=== PATIENT | female | born 1985 ===

== ENCOUNTER 2025-04-26 13:25 | Outpatient (AMB) | payer OTHER, SELFPAY | END 2025-04-26 13:29 | disposition home or self-care (01) | LOC: HO.HMGAL 13:25 | PROVIDERS: PCP Family Medicine; Visit Provider Registered Nurse Emergency | DX: J30.89 Other allergic rhinitis (principal) | CPT/HCPCS: 95117; 95165 ==

== ENCOUNTER 2025-05-08 13:20 | Outpatient (AMB) | payer OTHER, SELFPAY | END 2025-05-08 13:22 | disposition home or self-care (01) | LOC: HO.HMGAL 13:20 | PROVIDERS: Visit Provider Registered Nurse Emergency | DX: J30.89 Other allergic rhinitis (principal) | CPT/HCPCS: 95117; 95165 ==

== ENCOUNTER 2025-05-31 13:39 | Outpatient (AMB) | payer OTHER, SELFPAY | END 2025-05-31 13:40 | disposition home or self-care (01) | LOC: HO.HMGAL 13:39 | PROVIDERS: Visit Provider Registered Nurse Emergency | DX: J30.89 Other allergic rhinitis (principal) | CPT/HCPCS: 95117; 95165 ==

== ENCOUNTER 2025-06-26 13:35 | Outpatient (AMB) | payer OTHER, SELFPAY | END 2025-06-26 13:35 | disposition home or self-care (01) | LOC: HO.HMGAL 13:35 | PROVIDERS: Visit Provider Registered Nurse Emergency | DX: J30.89 Other allergic rhinitis (principal) | CPT/HCPCS: 95117; 95165 ==

== ENCOUNTER 2025-07-26 13:19 | Outpatient (AMB) | payer OTHER, SELFPAY ==
--- OUTSIDE RECORDS SUMMARY | 2025-07-26 15:48 | XMS_ITS | Data Portability ---
Author Organization [place] - [employer] [facility], [facility] [employer] Address [address] [place] [address] Care Team Providers Care Recreation Teacher Name Role Phone FordLYNN WILLIE Primary Care Provider [phone] Assessment Encounter Date Assessment Date Assessment LastModified by Organization Details LastModified Time 07/18/2024 07/18/2024 Pt is scheduled with Dr. Zimmer for 6 week visit. Appt confirmed with pt today. Not available 07/18/2024 11:47:42 Plan of Treatment Reminders Order Date Submit Date Provider Last Modified By Organization Details Last Modified Time Details Appointments Ext annual 2024 03:00P Demler Smith MD Not available Not available Not available Lab test, urine 2023 024 [email or web address] In-Office Order, Internal Use Only DO Not Attach Compendium DO Not Attach Compendium, Do Not Delete/merge, [id number] 08/11/2024 12:10:37 streptoco ccus group B DNA 2023 024 [facility], [address] [place] [address], [id number], 06/08/2024 07:49:31 Referral None recorded. Procedures None recorded. Surgeries None recorded. Imaging None recorded. Medication Orders Nexplanon 68 mg subdermal implant 2023 024 etatro Not available 08/11/2024 15:43:12 Patient TargetsNo targets recorded. Patient InstructionsNo instructions recorded. Reason for Referral None Reported. Results Created Date Observation Date Name Description Value Unit Range Abnormal Flag Note LastModifiedBy Organization Detail LastModifiedTime 06/06/20 24 06/07/2024 GROUP B STREP (PCR) -LORIE VIOLETTE group B strep (PCR)-genita l NEGATI VE Faiza l Range : Not Detec betzy The Cephe id Xpert GBS LB Assay is an in vitro molec ular diagn ostic test desig bhavya to detec t Group B Stept ococc us (GBS) from MATUTE broth enric hed vagin al/re ctal swab speci mens. The assay uses a real- time polym erase chain react ion for detec tion of ampli fied DNA. The assay signi fican tly incre ases the sensi tivit y and speci ficit y to great er than 90% over tradi catalina l subcu lture . Testi ng is indic ated as an aid in deter minin g GBS colon izati on statu s of antep artum women at 35-37 weeks gesta tion. The Xpert GBS LB assay does not provi de antim icrob ial susce ptibi lity resul ts. Cultu re isola jovana are neede d to perfo rm susce ptibi lity testi ng as recom moy d for Penic illin -darlene rgic women . A separ ate test must be order ed for cultu re with susce ptibi lity on penic illin aller gic women at high risk of anaph ylaxi s. Note: Patie nts who have used syste torie or topic al (vagi nal) antib iotic treat ment in the week prior as well as patie nts diagn osed with place nta previ a shoul d not be teste d with Xpert GBS LB assay . Not Available [address], [address], 06/08/2024 07:49:31 06/30/20 24 06/30/2024 COMPL ETE BLOOD COUNT W/ DIFF white blood count 11.4 K/mm3 4.0-11 .0 high Not Available [address], [address], 06/30/2024 08:48:08 06/30/20 24 06/30/2024 COMPL ETE BLOOD COUNT W/ DIFF red blood count 4.34 M/uL 4.00-5 .50 normal Not Available [address], [address], 06/30/2024 08:48:08 06/30/20 24 06/30/2024 COMPL ETE BLOOD COUNT W/ DIFF hemoglobin 12.7 gm/dL 12.0-1 6.0 normal Not Available [address], [address], 06/30/2024 08:48:08 06/30/20 24 06/30/2024 COMPL ETE BLOOD COUNT W/ DIFF hematocrit 38.0 % 37.0-4 7.0 normal Not Available [address], [address], 06/30/2024 08:48:08 06/30/20 24 06/30/2024 COMPL ETE BLOOD COUNT W/ DIFF mean corpuscular volume 87.6 fL 80.0-1 00.0 normal Not Available [address], [address], 06/30/2024 08:48:08 06/30/20 24 06/30/2024 COMPL ETE BLOOD COUNT W/ DIFF MCHC 33.4 % 32-37 normal Not Available [address], [address], 06/30/2024 08:48:08 06/30/20 24 06/30/2024 COMPL ETE BLOOD COUNT W/ DIFF red cell distribution width 13.4 % 11.5-1 6.0 normal Not Available [address], [address], 06/30/2024 08:48:08 06/30/20 24 06/30/2024 COMPL ETE BLOOD COUNT W/ DIFF platelet count 196 K/uL 140-40 0 normal Not Available [address], [address], 06/30/2024 08:48:08 06/30/20 24 06/30/2024 COMPL ETE BLOOD COUNT W/ DIFF mean platelet volume 10.5 fL 8.6-12 .5 normal Not Available [address], [address], 06/30/2024 08:48:08 06/30/20 24 06/30/2024 COMPL ETE BLOOD COUNT W/ DIFF %neutrophils auto 87.2 % Not Available [address], [address], 06/30/2024 08:48:08 06/30/20 24 06/30/2024 COMPL ETE BLOOD COUNT W/ DIFF %lymphocytes auto 5.8 % Not Available [address], [address], 06/30/2024 08:48:08 06/30/20 24 06/30/2024 COMPL ETE BLOOD COUNT W/ DIFF %monocytes auto 6.2 % Not Available [address], [address], 06/30/2024 08:48:08 06/30/20 24 06/30/2024 COMPL ETE BLOOD COUNT W/ DIFF %eosinophils auto 0.7 % Not Available [address], [address], 06/30/2024 08:48:08 06/30/20 24 06/30/2024 COMPL ETE BLOOD COUNT W/ DIFF %basophils auto 0.1 % Not Available [address], [address], 06/30/2024 08:48:08 06/30/20 24 06/30/2024 COMPL ETE BLOOD COUNT W/ DIFF #neutrophils auto 9.95 K/uL 1.50-7 .50 high Not Available [address], [address], 06/30/2024 08:48:08 06/30/20 24 06/30/2024 COMPL ETE BLOOD COUNT W/ DIFF #lymphocytes auto 0.66 K/uL 1.00-4 .50 low Not Available [address], [address], 06/30/2024 08:48:08 06/30/20 24 06/30/2024 COMPL ETE BLOOD COUNT W/ DIFF #monocytes auto 0.71 K/uL 0.00-0 .80 normal Not Available [address], [address], 06/30/2024 08:48:08 06/30/2006/30/2024 COMPL ETE BLOOD COUNT W/ DIFF #eosinophils auto 0.08 K/uL 0.00-0 .40 normal Not Available [address], [address], 06/30/2024 08:48:08 06/30/20 24 06/30/2024 COMPL ETE BLOOD COUNT W/ DIFF #basophils auto 0.01 K/uL 0.00-0 .20 normal Not Available [address], [address], 06/30/2024 08:48:08 06/30/2006/30/2024 TYPE AND SCREE N blood type A Positi ve Not Available [address], [address], 06/30/2024 09:37:07 06/30/2006/30/2024 TYPE AND SCREE N antibody screen NEGATI VE Not Available [address], [address], 06/30/2024 09:37:07 07/01/2007/01/2024 COMPL ETE BLOOD COUNT W/ DIFF white blood count 9.7 K/mm3 4.0-11 .0 normal Not Available [address], [address], 07/01/2024 06:17:02 07/01/2007/01/2024 COMPL ETE BLOOD COUNT W/ DIFF red blood count 4.24 M/uL 4.00-5 .50 normal Not Available [address], [address], 07/01/2024 06:17:02 07/01/20 24 07/01/2024 COMPL ETE BLOOD COUNT W/ DIFF hemoglobin 12.3 gm/dL 12.0-1 6.0 normal Not Available [address], [address], 07/01/2024 06:17:02 07/01/20 24 07/01/2024 COMPL ETE BLOOD COUNT W/ DIFF hematocrit 37.3 % 37.0-4 7.0 normal Not Available [address], [address], 07/01/2024 06:17:02 07/01/20 24 07/01/2024 COMPL ETE BLOOD COUNT W/ DIFF mean corpuscular volume 88.0 fL 80.0-1 00.0 normal Not Available [address], [address], 07/01/2024 06:17:02 07/01/2007/01/2024 COMPL ETE BLOOD COUNT W/ DIFF MCHC 33.0 % 32-37 normal Not Available [address], [address], 07/01/2024 06:17:02 07/01/20 24 07/01/2024 COMPL ETE BLOOD COUNT W/ DIFF red cell distribution width 13.4 % 11.5-1 6.0 normal Not Available [address], [address], 07/01/2024 06:17:02 07/01/2007/01/2024 COMPL ETE BLOOD COUNT W/ DIFF platelet count 189 K/uL 140-40 0 normal Not Available [address], [address], 07/01/2024 06:17:02 07/01/2007/01/2024 COMPL ETE BLOOD COUNT W/ DIFF mean platelet volume 10.6 fL 8.6-12 .5 normal Not Available [address], [address], 07/01/2024 06:17:02 07/01/20 24 07/01/2024 COMPL ETE BLOOD COUNT W/ DIFF %neutrophils auto 77.6 % Not Available [address], [address], 07/01/2024 06:17:02 07/01/20 24 07/01/2024 COMPL ETE BLOOD COUNT W/ DIFF %lymphocytes auto 10.8 % Not Available [address], [address], 07/01/2024 06:17:02 07/01/2007/01/2024 COMPL ETE BLOOD COUNT W/ DIFF %monocytes auto 9.4 % Not Available [address], [address], 07/01/2024 06:17:02 07/01/20 24 07/01/2024 COMPL ETE BLOOD COUNT W/ DIFF %eosinophils auto 1.9 % Not Available [address], [address], 07/01/2024 06:17:02 07/01/20 24 07/01/2024 COMPL ETE BLOOD COUNT W/ DIFF %basophils auto 0.3 % Not Available [address], [address], 07/01/2024 06:17:02 07/01/20 24 07/01/2024 COMPL ETE BLOOD COUNT W/ DIFF #neutrophils auto 7.54 K/uL 1.50-7 .50 high Not Available [address], [address], 07/01/2024 06:17:02 07/01/20 24 07/01/2024 COMPL ETE BLOOD COUNT W/ DIFF #lymphocytes auto 1.05 K/uL 1.00-4 .50 normal Not Available [address], [address], 07/01/2024 06:17:02 07/01/20 24 07/01/2024 COMPL ETE BLOOD COUNT W/ DIFF #monocytes auto 0.91 K/uL 0.00-0 .80 high Not Available [address], [address], 07/01/2024 06:17:02 07/01/20 24 07/01/2024 COMPL ETE BLOOD COUNT W/ DIFF #eosinophils auto 0.18 K/uL 0.00-0 .40 normal Not Available [address], [address], 07/01/2024 06:17:02 07/01/20 24 07/01/2024 COMPL ETE BLOOD COUNT W/ DIFF #basophils auto 0.03 K/uL 0.00-0 .20 normal Not Available [address], [address], 07/01/2024 06:17:02 08/11/20 24 08/11/2024 pregn milind test, urine HCG negati ve Not Available In-Office Order Internal Use Only DO Not Attach Compendium DO Not Attach Compendium, Do Not Delete/merge, [id number] 08/11/2024 11:48:43 05/12/20 24 05/11/2024 US, obste tric, follo w-up No observ ation record ed. [facility] [address] [place], [address], 05/13/2024 09:59:22 Result Notes None recorded. Problems Name Problem SNOMED Code Status Onset Date Resolution Date Notes Provider Name and Address Organization Details Recorded Time Pregnanc y 00412013 Completed Mannie Zimmer MD [address] [place] [address], [phone], [place] [employer] [facility] 12:10:56 Routine antenata l care Completed Delmer Fenton MD [address] [place] [address], [phone], [facility] [employer] 4 16:11:49 Advanced maternal age 957515245 Completed AFP, L2, Qnatal Delmer Fenton MD [address] [place] [address], [phone], [facility] [employer] 4 16:11:49 Low-lyin g placenta 201270506 Completed rpt US pending, done and low lying placenta resolved nl growth 62% Mannie Zimmer MD [address] [place] [address], [phone], [facility] [employer] 4 08:15:55 Pregnanc y 21634429 Completed 202308/13/2024 Tiffany Kirk [facility], [facility] [employer] [facility] 4 16:14:17 COVID-19 [id number] Completed 2023 at 24.1 Shelby Strickland LPN [address] [place] [address], [phone], [facility] [employer] 4 15:28:20 Breech presenta tion [id number] Completed 202306/06/2024 on 05/11/24 ([place]) VTX on 06/06 Bella Dominguez MD [address] [place] [address], [phone], [facility] [employer] 4 13:20:06 Subcutan eous contrace ptive implant present 710783252 Active 2023 Inserted 08/11/24 Mannie Zimmer MD [address] [place] [address], [phone], [facility] [employer] 4 12:11:13 Problem Notes None recorded. Procedures Surgical History Date Name Laterality Status Provider Name and Address Organization Details Recorded Time 08/11/20 Nexplanon Insertion completed Mannie Zimmer MD [address] [place] [address], [phone], [facility] [employer] 08/11/2024 12:09:32 10/14/20 24 Limited Obstetric Ultrasound completed Bella Dominguez MD [address] [place] [address], [phone], [facility] [employer] 06/06/2024 13:05:15 08/31/19 24 Date of Last Pap Smear completed Zayra Stoll RN [address] [place] [address], [phone], [facility] [employer] 12/02/2023 13:36:33 12/21/19 22 Nexplanon Removal completed Delmer Fenton MD [address] [place] [address], [phone], [facility] [employer] 12/20/2021 15:37:00 06/25/20 18 Nexplanon Removal completed Delmer Fenton MD [address] [place] [address], [phone], [facility] [employer] 06/25/2018 16:17:58 10/15/19 16 Nexplanon Insertion completed Bella Dominguez MD [address] [place] [address], [phone], [facility] [employer] 10/15/2015 14:41:14 extraction of wisdom tooth completed Zayra Stoll RN [address] [place] [address], [phone], [facility] [employer] 12/02/2023 13:42:20 Imaging Results None recorded. Procedure Notes None recorded. Medical Equipment None Reported. Allergies Allergen ID Allergen Name Allergen Category Reaction Reaction Severity Criticality Documentation Date Start Date Code Code System Note Provider Name and Address Organization Details Recorded Time 18580 bacitraci n medicatio n Not available Not available Not available 09/10/2012 1291 RxNorm Nancy Sorto CMA null, [facility] [employer] [facility] 3 10:47:06 [address]659 bacitraci n / neomycin / polymyxin B medicatio n Not available Not available Not available 09/10/2012 08203 9 RxNorm Nancy Sorto CMA null, [facility] [employer] [facility] 3 10:47:06 Medications Name Sig Start Date Stop Date Status Note LastModified by Organization Details LastModified Time Mirena 21 mcg/24 hr (up to 8 years) 52 mg intrauter ine device active Not Available Not Available Not Available fluconazo le 150 mg tablet TAKE 1 TABLET BY MOUTH EVERY DAY FOR 1 DAY 06/22 completed Not Available Not Available Not Available dextroamp hetamine- amphetami ne 10 mg tablet TAKE 1 TABLET BY MOUTH THREE TIMES DAILY 08/31 completed Not Available Not Available Not Available lamotrigi ne 25 mg tablet 08/31 completed Not Available Not Available Not Available Vitamin tablet Take 1 tablet every day by oral route for 30 days. 2013 active Not Available Not Available Not Avai lable dextroamp hetamine- amphetami ne 30 mg tablet TAKE 1 TABLET BY MOUTH TWICE DAILY NEEDED FOR ADHD active Not Available Not Available No t Available famotidin e 20 mg tablet TAKE 1 TABLET BY MOUTH TWICE DAILY 07/18 completed Not Available Not Available Not Available trazodone 100 mg tablet TAKE 3 TABLETS BY MOUTH AT BEDTIME active is not taking since baby was born Not Available Not Available Not Available clotrimaz ole-betam ethasone 1 %-0.05 % topical cream APPLY TOPICALL Y TO THE AFFECTED AND SURROUND ING AREAS TWICE DAILY IN THE MORNING AND IN THE EVENING FOR 2 WEEKS 08/31 completed Not Available Not Available Not Available dextroamp hetamine- amphetami ne 20 mg tablet TAKE 1 AND 1/2 TABLETS BY MOUTH TWICE DAILY active not taking Not Available Not Available Not Available polyethyl maria g glycol 3350 17 gram/dose oral powder TAKE 17 GM BY MOUTH ONCE DAILY 03/06 completed Not Available Not Available Not Available lamotrigi ne 100 mg tablet TAKE 1 TABLET BY MOUTH EVERY DAY 08/31 completed Not Available Not Available Not Available Vitamin 27 mg iron-0.8 mg tablet TAKE 1 TABLET EVERY DAY BY ORAL ROUTE 08/31 completed Not Available Not Available Not Available escitalop amelia 10 mg tablet TAKE 1 TABLET BY MOUTH EVERY MORNING 08/31 completed Not Available Not Available Not Available escitalop amelia 20 mg tablet TAKE 1 TABLET BY MOUTH EVERY MORNING active Not Available Not Available No t Available bupropion HCl XL 300 mg 24 hr tablet, extended release TAKE 1 TABLET BY MOUTH EVERY DAY. 08/31 completed Not Available Not Available Not Available bupropion HCl XL 150 mg 24 hr tablet, extended release TAKE 1 TABLET BY MOUTH EVERY DAY 08/31 completed Not Available Not Available Not Available lactulose 10 gram/15 mL oral solution TAKE 30 ML BY MOUTH DAILY NEEDED FOR CONSTIPA TION 03/06 completed Not Available Not Available Not Available Nexplanon 68 mg subdermal implant Inject 1 implant by subcutan eous route. 2023 active FX Barcode Number: [id number] Not Available Not Available Not Available Nexplanon 08/31 completed Not Available Not Available Not Available 28 mg iron-800 mcg tablet TAKE 1 TABLET BY MOUTH ONCE DAILY active Not Available Not Available No t Available Banophen 50 mg capsule TAKE 1 CAPSULE BY MOUTH DAILY 08/31 completed Not Available Not Available Not Available Linzess 145 mcg capsule TAKE 1 CAPSULE BY MOUTH DAILY active Not Available Not Available No t Available Vienva 0.1 mg-20 mcg tablet TAKE 1 TABLET BY MOUTH DAILY DIRECTED ON PACKAGE 08/31 completed Not Available Not Available Not Available Linzess 72 mcg capsule TAKE 1 CAPSULE BY MOUTH DAILY 08/31 completed Not Available Not Available Not Available COVID-19 vacc,mRNA (Moderna) -PF 08/31 completed Not Available Not Available Not Available Sutab 1.479-0.1 88-0.225 gram tablet COMPLETE ON DAY BEFORE THE PROCEDUR E PER INSTRUCT IONS GIVEN BY 12/20 completed Not Available Not Available Not Available Vitals Date Recorded Body height Body mass index (BMI) Body weight Systolic And Diastolic Provider Name and Address Organization Details Last Updated DateTime 06/06/2024 175.26 cm 33.7 kg/m2 609036.78 g 108/72 mm[Hg] Zuri Soto CMA [place] [employer] 06/06/2024 12:51:32 Date Recorded Body height Body mass index (BMI) Body weight Systolic And Diastolic Provider Name and Address Organization Details Last Updated DateTime 06/13/2024 175.26 cm 33.7 kg/m2 043483.06 g 112/78 mm[Hg] Zayra Stoll RN [address] [place], [phone], [place] [employer] 06/13/2024 08:03:45 Date Recorded Body height Body mass index (BMI) Body weight Systolic And Diastolic Provider Name and Address Organization Details Last Updated DateTime 06/22/2024 175.26 cm 34.1 kg/m2 559791.84 g 120/72 mm[Hg] Zayra Stoll RN [address] [place], [phone], [facility] [employer] [facility] 06/22/2024 14:48:04 Date Recorded Body height Body mass index (BMI) Body weight Systolic And Diastolic Provider Name and Address Organization Details Last Updated DateTime 07/18/2024 175.26 cm 32.1 kg/m2 64060.98 g 106/64 mm[Hg] Shelby Strickland LPN [address] [place], [phone], [facility] [employer] [facility] 07/18/2024 11:06:54 Date Recorded Body height Body mass index (BMI) Body weight Systolic And Diastolic Provider Name and Address Organization Details Last Updated DateTime 08/11/2024 175.26 cm 33.6 kg/m2 048596.19 g 114/74 mm[Hg] Ashlee Cummins [facility] [employer] 08/11/2024 11:29:41 Social History Question Answer Notes LastModified by Organizat ion Details LastModified Time Tobacco Smoking Status Former Smoker quit 2012 Vivien Friedman CMA [facility] [employer] [facility] 08/31/2023 09:00:54 If You Are , What Was Your Level Of Alcohol Consumption Prior To ? None [email or web address] Information not available 12/02/2023 Is Blood Transfusion Acceptable In An Emergency? Yes Information not available 12/02/2023 What Is Your Level Of Caffeine Consumption? Occasional Information not available 03/06/2021 What Type Of Diet Are You Following? REGULAR Information not available 12/02/2023 Which Illicit Or Recreational Drugs Have You Used? None Information not available 08/31/2023 What Is Your Home Situation? Other Information not available 12/02/2023 Have You Ever Experienced Any Trauma Such As A Sexual Assault, Domestic Violence, Combat Experience, A Sudden Of A Loved One, Or Anything That Made You Excessively Afraid? No Information not available 03/06/2021 Language Tajik Information no t available 03/06/2021 Dietary Regular Information no t available 06/25/2018 Marital Status Informatio n not available 06/25/2018 What Was The Date Of Your Most Recent Tobacco Screening? 07/18/2024 Information not available 07/18/2024 How Many Children Do You Have? 1 [id number] Information not available 06/08/2020 Do You Use Protection During Sex? Always [id number] Information not available 06/08/2020 What Is Your Relationship Status? Single Information not available 12/02/2023 Seat Belts Used Routinely Yes Information not available 03/06/2021 Are You Sexually Active? Yes [id number] Information not available 06/08/2020 Are You Passively Exposed To Smoke? No Information not available 12/02/2023 How Much Tobacco Do You Smoke? No Information not available 08/31/2023 Are You Currently In School? No Information not available 12/02/2023 What Contraceptive Method Was Reported At Start Of This Visit? None Information not available 12/02/2023 Do You Want To Talk About Contraception Or Prevention During Your Visit Today? No - I Do Not Want To Talk About Contraception Today Because I Am Here For Something Else Information not available 12/02/2023 Sex: Female Functional Status Question Answer Note LastModified by Organizat ion Details LastModified Time Do you use any illicit or recreational drugs? No Information not available 08/31/2023 Do you or have you ever used any other forms of tobacco or nicotine? No Information not available 08/31/2023 What is your level of alcohol consumption? Occasional [id number] Information not available 06/08/2020 Are you currently employed? 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 Occasional [id number] Information not available 06/08/2020 Mental Status None recorded. Family History Relationship Description Onset Age of this Age Resolved Age Notes LastModified by Organization Details LastModified Time Father No current problems or disability [email or web address] Not available 07/22 13:04:33 Mother No current problems or disability [email or web address] Not available 07/22 13:04:33 Notes:No known family hx of [employer] related cancers. Medical History Condition Response Asthma, COPD, Breathing or Lung Disorder N Anxiety/Depression N Gout N Cardiac History, Heart Murmur, GA N Eye or Vision Problems Y Gynecologic problems N Hernia N Thyroid Problems N GI Problems N Developmental or Behavioral Disorders N Blood Pressure High or Low N Breast Problem N Skin Problems N Food or Environmental Allergies Y Diabetes N Bladder,Kidney Problems or Recurrent UTI 's N Muscle, Joint, or Bone Problems N Bleeding Disorder N Arthritis N Infertility N Cancer (of any kind) N Defects or Inherited Diseases N Prostate issues, ED or Sexual Problem N Insomnia N Cholesterol High or Low N Chronic Pain N Stroke N Headache N Dizziness or Fainting N Seizures or Convulsions N Ear Nose & Throat (ENT) Problems N Neuropathy N Osteoporosis N Liver Disease or Hepatitis N Gynecological History Statement/Question Response Hx abnormal paps No N genital prolapse N Date of LMP 09/30/2023 hx of breast problem No Y Post Menopausal Bleeding N endometriosis N Duration of Flow (days) 5 Current Control Method None Age at Menarche 14 vaginal hormone use N Gardasil vaccination No Using condoms N incontinence urine/ bowels N Frequency of Cycle (Q days) 29 Sexually Active? Y Hx any STI No chronic vaginal infections N Nexplanon Date of Last Pap Smear 08/31/2023 hx of urinary problem No hx of bibliographic services specialist surgery No Hormone Replacement Therapy N Obstetrics History GPAL:G 2 P 2 0 0 2 Type Value Full Term 2 Living 2 Total 2 Immunizations Vaccine Type Date Status Note Provider Nam e and Address Organization Details Recorded Time Tdap 04/12/2024 completed Vivien Friedman CMA [facility], [facility] [employer] 04/12/2024 17:08:28 Influenza, split virus, trivalent, PF 05/13/2024 completed NIHARIKA ARANGO MD [address] [place] [address], [phone], [facility] - [employer] 05/13/2024 15:00:55 Past Encounters Encounter ID Performer Location Encounter Start Date Encounter Closed Date Diagnosis/Indication Diagnosis SNOMED-CT Code Diagnosis ICD10 Code Diagnosis IMO Codes Diagnosis Note [id number] Delmer Fenton MD [facility] [employer] [address] [place] [address] 09/15/2013 16:05:30 09/15/2013 16:40:21 Specialized medical examination [id number] Screening for malignant neoplasm of cervix [id number] Removal of intrauterine device 00403292 Contracept ion care management [id number] Ang Reid MD [facility] [employer] [address] [place] [address] 10/11/2015 15:35:12 10/11/2015 16:18:48 Gynecologic examination 95815360 Z01.419 [id number] Bella Dominguez MD [facility] [address] [place] [place] [address] 10/15/2015 14:08:55 10/15/2015 15:28:51 Contraception care management 004946891 Z30.9 Implantati on of subcutaneous contraceptive 463745528 Z30.430 [id number] Delmer Fenton MD [facility] [place] [address] 06/25/2018 15:32:36 06/25/2018 16:19:01 Gynecologic examination 16209409 Z01.419 Screening for malignant neoplasm of cervix 214714864 Z12.4 Removal of subcutaneous contraceptive done 2777546400 32092 Z98.213 [id number] DOMO SALAZAR CNM [facility] [address] [facility] [place] [address] 04/06/2019 13:41:58 04/06/2019 14:19:23 Pruritus of vagina 73777815 L29.3 Pruritus of vulva 084823 00 L29.2 Contracept ion care management 665772087 Z30.9 [id number] Delmer Fenton MD [facility] [address] [place] [place] [address] 07/22/2019 12:54:33 07/22/2019 13:21:15 Gynecologic examination 38913908 Z01.419 Contracept ion care management 180571175 Z30.9 [id number] Delmer Fenton MD [facility] David annia [address] [place] [address] 11/22/2019 08:11:03 11/29/2019 11:56:49 Surveillance of subcutaneous contraceptive implant 536470371 Z30.46 [id number] Delmer Fenton MD [facility] David annia [address] [place] [address] 03/06/2021 15:58:39 03/07/2021 16:39:34 Gynecologic examination 19410242 Z01.419 Female uri nary stress incontinence 86147307 N39.3 [id number] Delmer Fenton MD [facility] David [place] [address] [place] [address] 12/20/2021 14:40:15 12/20/2021 15:36:31 Removal of subcutaneous contraceptive 451386733 Z30.46 Trying to conceive 40192 9001 Z31.9 [id number] Delmer Fenton MD [facility] David annia [address] [place] [address] 08/31/2023 12:56:53 08/31/2023 13:55:19 Gynecologic examination 63971787 Z01.419 Screening for malignant neoplasm of cervix 822118916 Z12.4 Trying to conceive 01219 9001 Z31.9 [id number] Mannie Zimmer MD [facility] David annia [address] [place] [address] 12/02/2023 13:22:37 12/04/2023 08:48:23 Routine care 240693049 Z34.90 Diet education 56686330 Z71.3 [id number] Mannie Zimmer MD [facility] David annia [address] [place] [address] 12/14/2023 15:16:09 12/14/2023 16:38:45 Routine care 302086064 Z34.81 Advanced m aternal age 580730593 O09.521 33273510 Z33.1 [id number] Mannie Zimmer MD [facility] [place] [address] [place] [address] 01/08/2024 14:51:49 01/08/2024 15:43:48 Routine care 746980383 Z34.81 [id number] Bella Dominguez MD [facility] [place] [address] [place] [address] 02/05/2024 14:30:36 02/05/2024 15:20:39 56535135 Z33.1 [id number] NIHARIKA ARANGO MD [facility] [place] [address] [place] [address] 03/04/2024 15:46:58 03/04/2024 16:21:03 Low-lying placenta 629276457 O44.42 Routine an tenatal care 777834741 Z34.81 Advanced m aternal age 463628667 O09.566 [id number] NIHARIKA ARANGO MD [facility] [place] [address] [place] [address] 03/31/2024 14:47:44 03/31/2024 15:42:03 Gastroesophageal reflux disease in 1476112009 1378025 O99.323 [id number] Delmer Fenton MD [facility] [place] [address] [place] [address] 04/12/2024 16:25:56 04/12/2024 17:04:49 Administration of diphtheria, pertussis, and tetanus vaccine 934638488 Z23 TDaP given today; informatio n sheet provided Routine an tenatal care 328153812 Z34.82 Low-lying placenta 28638 2007 O44.42 [id number] Bella Dominguez MD [facility] [place] [address] [place] [address] 04/27/2024 08:11:01 04/27/2024 08:55:48 36417370 Z33.1 [id number] [facility]ARIKA [facility] [address] [place] [address] 05/13/2024 14:32:06 05/16/2024 11:27:26 Influenza vaccine needed 6265227542 106 Z23 Advanced m aternal age 244963145 O09.444 [id number] Delmer Fenton MD [facility] [address] [place] [address] 05/26/2024 13:35:46 05/27/2024 16:52:20 Routine care 648295189 Z34.82 Breech presentation 6096 002 O32.1XX9 [id number] Bella Dominguez MD [facility] [address] [place] [address] 06/06/2024 12:45:28 06/06/2024 13:08:45 screening 252258725 Z36.85 GBS done today [id number] Mannie Zimmer MD [facility] [address] [place] [address] 06/13/2024 07:56:35 06/13/2024 08:28:58 Advanced maternal age 859084658 O09.450 [id number] Delmer Fenton MD [facility] [address] [place] [address] 06/22/2024 14:26:52 06/22/2024 15:08:37 Routine care 806341568 Z34.82 [id number] Delmer Fenton MD [facility] [address] [place] [address] 07/18/2024 10:45:58 08/02/2024 15:20:25 state 15323554 Z39.2 [id number] Baby- Boy, Jose Ramon, sleeping varies at night, helps with shifts at night Mood- EPDS Score: 2, Feeling good Feeding- Combinatio n as her supply is low, breastfeed ing, pumping bottle feeding Formula and breast milk Any breast pain? Denies Voiding- no issues Moving bowels- takes Linzess and MOM regularly prior to , bowels are per her usual Lochia- bleeding stopped 24 hours ago Pain- no pain control- Would like Nexplanon at 6 week visit. Incision- denies any discomfort Encourage rest, no heavy, physical activity for 6 weeks, mild exercise, walking, stretching , eating meals, drinking fluids. Discussed beyond delivery group. Support at home ok? is home with pt until Aug, He is very helpful, Also has 15 year old daughter that helps some. PAP- 08/31/23- NILM/Neg HPV [id number] Mannie Zimmer MD [facility] [place] [address] [place] [address] 08/11/2024 11:05:20 08/11/2024 12:35:56 Implantation of subcutaneous contraceptive 359092185 Z30.017 67157083 state 5316767 1 Z39.2 [id number] normal exam; Nexplanon inserted today; mood good; reviewed normal care going forward and advised to call with any questions/ concerns Health Concerns Section Related Observation LastModified by Organization Detai ls LastModified Time None Recorded Concern Status LastModified by Organization Details LastModified Time None Recorded Advance Directives Directive None Recorded Payers Insurance Date Sequence Insurance Name Policy Number Policy Cruz Covered Member ID Cruz Member ID Guarantor Name 08/31/2023 1 [employer] Tano Renteria [id number] Tano Finnegan [place] 08/31/2023 2 [facility] - PLAN TYPE 3 (MEDICAID HMO) [id number] Tano Renteria [id number] Tano Finnegan [place] 08/29/2024 1 [facility] (O) [id number] Tano Finnegan [place] [id number] Tano Finnegan [place] 08/31/2023 1 [facility] OPEN ACCESS [facility] [id number] Tano Renteria [id number] Tano Layton Notes Date Note Type Note Provider Name and Address Organization Details Recorded Time 4 text/html VisitReported by PatientHPIFor associated symptoms, patient reportsconstipation (prior to had constipation. it is back to her usual constipation baseline now.)but reportsno abnormal bleeding,no pelvic pain,no fecal incontinence,no dysuria,no urinary incontinence,no fever,no problems, andno mastitis. For onset/timing, patient reportsdate of delivery: (06/30/24). For quality, patient reportsnsvd. For context, patient reportscomplications of : none,complications of labor: none,laceration: __ (periurethral laceration), complications: none,feeding choice: breast and bottle, andgood support from partner/family. Baby- Boy, Jose Ramon, sleeping varies at night, helps with shifts at night Mood- EPDS Score: 2, Feeling good Feeding- Combination as her supply is low, , pumping bottle feeding Formula and breast milk Any breast pain? Denies Voiding- no issues Moving bowels- takes Linzess and MOM regularly prior to , bowels are per her usual Lochia- bleeding stopped 24 hours ago Pain- no pain control- Would like Nexplanon at 6 week visit. Incision- denies any discomfort Encourage rest, no heavy, physical activity for 6 weeks, mild exercise, walking, stretching, eating meals, drinking fluids. Support at home ok? is home with pt until Aug, They do a lot of team work. Delmer Fenton MD [address] [place] [address], [id number] 07/19/2024 09:59:48 4 text/html VisitReported by Patient Tano presents today for her 6 week post -. Baby- BoyJose Ramon, sleeping varies at night, helps with shifts at night Mood- EPDS Score: 4 Feeding- Combination as her supply is low, , pumping bottle feeding Formula and breast milk Any breast pain? No Voiding- no issues Moving bowels- No Lochia- No Pain- no pain control- Would like Nexplanon at 6 week visit. Incision- denies any discomfort Encourage rest, no heavy, physical activity for 6 weeks, mild exercise, walking, stretching, eating meals, drinking fluids. Discussed beyond delivery group. Support at home ok? is home with pt until Aug, He is very helpful, Also has 15 year old daughter that helps some. PAP- 08/31/23- NILM/Neg HPV Mannie Zimmer MD [address] [place], [address], [facility] - [employer] [facility] 08/11/2024 12:11:40 OBGyn Episode Ob Episode Information Episode Created Date Number of Fetuses Patient Bloodtype Patient rh Status Prepregnancy Weight lbs Domestic Partner Domestic Partner Phone Father Name Lamp Shade Sewer Status 09/10/19 13 1 CLOSED Fetus Data First Name Last Name Admitted to NICU Weight (g) Sex Living Outcome Pediatric Complications Fetus ID Race Codes Race Delivery Type 3714.91 848 F Full Term 7887 Vaginal Delivery Alok Calculation Initial Alok Date Initial Exam Date Initial Exam Provider Initial Ultrasound Date Last Menstrual Period Date Ultra Sound Weeks Gestation 0 Eighteen To Twenty Week Alok Update Ultra Sound Date Fundal Height At Umbil Quickening Date Ultra Sound Latest Weeks Gestation Final Alok Confirmed By Final Alok Confirmed Date Final Alok Date Ultra Sound Latest Days Gestation 0 0 Menstrual History Last Menstrual Date Menses Monthly On Bcp Conception Prior Menses Frequency Hcg Plus Date Menarche Onset Age Delivery Information Delivery Date Delivery Type Labor Anesthesia Weeks Gestation Incision Type Labor Labor Length Hrs Delivered By Post Complications Tubal Sterilization Discharge Date Comments 9 41 Discharge Information Feeding Method Contraceptive Method Maternal HG B and HCT Levels Ob Episode Information Episode Created Date Number of Fetuses Patient Bloodtype Patient rh Status Prepregnancy Weight lbs Domestic Partner Domestic Partner Phone Father Name Lamp Shade Sewer Status 12/02/19 24 1 A Positive 197 CLOSED Fetus Data First Name Last Name Admitted to NICU Weight (g) Sex Living Outcome Pediatric Complications Fetus ID Race Codes Race Delivery Type Jose Ramon Moult on false 3405.06 [id number] M true Full Term [id number] 2131-1 Other Race Vaginal Delivery Problems Problem Notes NVD 2009 tested to 8#3 Problem Name Start Date End Date Resolution Snomed Code Not e 95580344 Routine care 7248343 03 Advanced maternal age 049410849 AFP, L2, Qnatal Breech presentation 05/11/2024 06/06/2024 [id number] on 05/11/24 ([place]) VTX on US 06/06 COVID-19 03/17/2024 [id number] at 24.1 Low-lying placenta 393055280 r pt US pending, done and low lying placenta resolved nl growth 62% Alok Calculation Initial Alok Date Initial Exam Date Initial Exam Provider Initial Ultrasound Date Last Menstrual Period Date Ultra Sound Weeks Gestation 07/06/2024 12/02/2023 09/30/2023 0 Eighteen To Twenty Week Alok Update Ultra Sound Date Fundal Height At Umbil Quickening Date Ultra Sound Latest Weeks Gestation Final Alok Confirmed By Final Alok Confirmed Date Final Alok Date Ultra Sound Latest Days Gestation 0 07/06/20 24 0 Pre-carl Flowsheet Flowsheet Date 12/02/2023 Mcfarland Score Blood Edema Fundus Height Fundus Units Glucose Ketones Leukocytes Nitrite Labor Signs Protein Cervic Dilation Cervic Effacement Cervic Station Type Weight in lbs Pre/Post Dialysis Refused Stated 200.294628171651 BP Diastolic BP Location Tested BP Systolic BP Type 71 R arm 104 sitting Fetus Heart Rate Present Fetus Movement Comments Tano presents in office fo r initial OB intake. . Pap 08/31/2023 NILM/ HPV-. No previous SMA carrier screening. Declines nutrition consult. Reviewed first trimester education and model of care. Jasen Stoll RN Flowsheet Date 12/14/2023 Mcfarland Score Blood Edema Fundus Height Fundus Units Glucose Ketones Leukocytes Nitrite Labor Signs Protein Cervic Dilation Cervic Effacement Cervic Station Type Weight in lbs Pre/Post Dialysis Refused With clothes 206.132564384693 BP Diastolic BP Location Tested BP Systolic BP Type 72 R arm 118 sitting Fetus Heart Rate Present Fetus Movement Comments Flowsheet Date 01/08/2024 Mcfarland Score Blood Edema Fundus Height Fundus Units Glucose Ketones Leukocytes Nitrite Labor Signs Protein Cervic Dilation Cervic Effacement Cervic Station Type Weight in lbs Pre/Post Dialysis Refused With clothes 206.919631003681 BP Diastolic BP Location Tested BP Systolic BP Type 72 R arm 109 sitting Fetus Heart Rate Present A 155 Present Fetus Movement Comments doing well, NT wnl, Anatomy TBD at [facility] (pt thinks her NT was her anatomy scan). AFP paperwork. RTO 4 wks Flowsheet Date 02/05/2024 Mcfarland Score Blood Edema Fundus Height Fundus Units Glucose Ketones Leukocytes Nitrite Labor Signs Protein Cervic Dilation Cervic Effacement Cervic Station 18 wks none Type Weight in lbs Pre/Post Dialysis Refused With clothes 211.429542193115 BP Diastolic BP Location Tested BP Systolic BP Type 72 R arm 120 sitting Fetus Heart Rate Present A 145 Present Fetus Movement A Yes Comments AFP wnl, anatomy scan ordere d at [facility] 02/18/24RTO 4w routine Flowsheet Date 03/04/2024 Mcfarland Score Blood Edema Fundus Height Fundus Units Glucose Ketones Leukocytes Nitrite Labor Signs Protein Cervic Dilation Cervic Effacement Cervic Station Type Weight in lbs Pre/Post Dialysis Refused With clothes 220.224776138623 BP Diastolic BP Location Tested BP Systolic BP Type 68 L arm 120 sitting Fetus Heart Rate Present A 150 Fetus Movement A Yes Comments feeling well, discussed sono and LLP, to report any bleeding, repeat sono at 32 wks ordered, cbc gct in 4 wks , rto in 4 wks Flowsheet Date 03/18/2024 Mcfarland Score Blood Edema Fundus Height Fundus Units Glucose Ketones Leukocytes Nitrite Labor Signs Protein Cervic Dilation Cervic Effacement Cervic Station Type Weight in lbs Pre/Post Dialysis Refused BP Diastolic BP Location Tested BP Systolic BP Type Fetus Heart Rate Present Fetus Movement Comments Pt's called to let u s know pt tested positive for Covid 03/17. KDaigle [employer] Flowsheet Date 03/31/2024 Mcfarland Score Blood Edema Fundus Height Fundus Units Glucose Ketones Leukocytes Nitrite Labor Signs Protein Cervic Dilation Cervic Effacement Cervic Station 27 cm Type Weight in lbs Pre/Post Dialysis Refused Weight 220.241392510938 BP Diastolic BP Location Tested BP Systolic BP Type 70 112 Fetus Heart Rate Present A 150 Present Fetus Movement A Yes Comments GTT today; feels better sinc e COVID - no respiratory issues or fever at the time. c/o signficant worsening GERD; Rx sent. Routine OB exam Flowsheet Date 04/12/2024 Mcfarland Score Blood Edema Fundus Height Fundus Units Glucose Ketones Leukocytes Nitrite Labor Signs Protein Cervic Dilation Cervic Effacement Cervic Station 30 cm Type Weight in lbs Pre/Post Dialysis Refused With clothes 224.492255955895 BP Diastolic BP Location Tested BP Systolic BP Type 68 R arm 110 sitting Fetus Heart Rate Present A 135 Fetus Movement A Yes Comments feeling well, TDAP today, nl gct , mild anemia and taking iron supplements, lives 1:20 min from [facility] , DESIRES IOL AT 39 WKS, rto in 2 wks , sono 05/11 for LLP Flowsheet Date 04/27/2024 Mcfarland Score Blood Edema Fundus Height Fundus Units Glucose Ketones Leukocytes Nitrite Labor Signs Protein Cervic Dilation Cervic Effacement Cervic Station trace 30 cm none Type Weight in lbs Pre/Post Dialysis Refused Weight 220.11727369183 BP Diastolic BP Location Tested BP Systolic BP Type 62 99 Fetus Heart Rate Present A 145 Present Fetus Movement A Yes Comments notes more nausea and disc r emedies. rto 1 week. Flowsheet Date 05/13/2024 Mcfarland Score Blood Edema Fundus Height Fundus Units Glucose Ketones Leukocytes Nitrite Labor Signs Protein Cervic Dilation Cervic Effacement Cervic Station 33 cm Type Weight in lbs Pre/Post Dialysis Refused Weight 227.974804122045 BP Diastolic BP Location Tested BP Systolic BP Type 68 102 Fetus Heart Rate Present A 140 Present Fetus Movement A Yes Comments flu vacc today. doing well, feels better with wrist bands. Would like to schedule IOL so that she can give work her dates. RTO 2 wks Flowsheet Date 05/26/2024 Mcfarland Score Blood Edema Fundus Height Fundus Units Glucose Ketones Leukocytes Nitrite Labor Signs Protein Cervic Dilation Cervic Effacement Cervic Station 36 cm Type Weight in lbs Pre/Post Dialysis Refused With clothes 233.829320085158 BP Diastolic BP Location Tested BP Systolic BP Type 77 R arm 116 sitting Fetus Heart Rate Present A 135 Fetus Movement A Yes Comments feeling well, good FM, had h er tdap and flu, discussed RSV vaccine , to get it before 36 wks.SONO SHOWED EFW AT 62% NO LLP, BREECH, CHECK PRESENTATION NEXT VISIT Flowsheet Date 06/06/2024 Mcfarland Score Blood Edema Fundus Height Fundus Units Glucose Ketones Leukocytes Nitrite Labor Signs Protein Cervic Dilation Cervic Effacement Cervic Station 37 cm Pressure 2cm 60% - 3 Type Weight in lbs Pre/Post Dialysis Refused With clothes 228.82965218259 BP Diastolic BP Location Tested BP Systolic BP Type 72 R arm 108 sitting Fetus Heart Rate Present A 142 Present Fetus Movement A Yes Comments All vax completed. Reviewed s/sx labor. VTX on US in offc. GBS collected. RTO weekly. Flowsheet Date 06/13/2024 Mcfarland Score Blood Edema Fundus Height Fundus Units Glucose Ketones Leukocytes Nitrite Labor Signs Protein Cervic Dilation Cervic Effacement Cervic Station 34 cm Type Weight in lbs Pre/Post Dialysis Refused With clothes 228.368184479229 BP Diastolic BP Location Tested BP Systolic BP Type 78 R arm 112 sitting Fetus Heart Rate Present A 128 Fetus Movement A Yes Comments Pt lives in [place], second b [place], and already dilated 2 cm-->IOL scheduled for 07/03/24 for AMA and to avoid potential for extramural delivery; IOL consent signed today; GBS negative Flowsheet Date 06/22/2024 Mcfarland Score Blood Edema Fundus Height Fundus Units Glucose Ketones Leukocytes Nitrite Labor Signs Protein Cervic Dilation Cervic Effacement Cervic Station 35 cm Type Weight in lbs Pre/Post Dialysis Refused With clothes 231.918045779955 BP Diastolic BP Location Tested BP Systolic BP Type 72 L arm 120 sitting Fetus Heart Rate Present A 133 Fetus Movement A Yes Comments doing well, IOL at 39 wks , scheduled . rto in 1 week. Flowsheet Date 07/18/2024 Mcfarland Score Blood Edema Fundus Height Fundus Units Glucose Ketones Leukocytes Nitrite Labor Signs Protein Cervic Dilation Cervic Effacement Cervic Station Type Weight in lbs Pre/Post Dialysis Refused Weight 217.232726509142 BP Diastolic BP Location Tested BP Systolic BP Type 64 L arm 106 sitting Fetus Heart Rate Present Fetus Movement Comments Flowsheet Date 08/11/2024 Mcfarland Score Blood Edema Fundus Height Fundus Units Glucose Ketones Leukocytes Nitrite Labor Signs Protein Cervic Dilation Cervic Effacement Cervic Station Type Weight in lbs Pre/Post Dialysis Refused Weight 227.603233104765 BP Diastolic BP Location Tested BP Systolic BP Type 74 114 Fetus Heart Rate Present Fetus Movement Comments Menstrual History Last Menstrual Date Menses Monthly On Bcp Conception Prior Menses Frequency Hcg Plus Date Menarche Onset Age 0209/30/2023 false 12 Genetic Screening And Infection History Question Response Note Patient's Age Will Be 35 Years Or Older At Estim ated Date of Delivery true Thalassemia (Arabic, Bengali, Mediterranean, Or Background): MCV < 80 false Neural Tube Defect (Meningomyelocele, Spina Bifi da, Or Anencephaly) false Congenital Heart Defect false Down Syndrome false Jono-Sachs (eg, Faith, Cajun, Tuvaluan-[place]) f alse Sis Disease false Sickle Cell Disease Or Trait () false Hemophilia Or Other Blood Disorders false Muscular Dystrophy false Cystic Fibrosis false [place]'s Chorea false Mental Retardation/Autism false If Yes, Was Person Tested For Fragile X? false Other Inherited Genetic Or Chromosomal Disorder false Maternal Metabolic Disorder (eg, Type 1 Diabetes , PKU) false Patient Or Baby's Father Had A Child With Defects Not Listed Above false Recurrent Loss, Or A Stillbirth false Medications (including Suppl ements, Vitamins, Herbs, OTC Drugs), Illicit/Recreational Drugs, Alcohol true If Yes, Agent(s) And Strength/Dosage true Any Other Genetic History false Live With Someone With TB Or Exposed To TB false Patient Or Partner Has History Of Genital Herpes false Rash Or Viral Illness Since Last Menstrual Perio d false History Of STD, Gonorrhea, Chlamydia, HPV, Syphi lis false Other Infection History false desires genetic screening tests true Qnatal Comments false History of HIV false History of Hepatitis false Prior GBS-infected child false Plans and Education First Trimester Discussed Date Discussion Item Discussion Note Discuss ed By 12/02/2023 [facility] 12/02/2023 [facility] 12/02/2023 Intimate partner violence [facility] 12/02/2023 Environmental/work hazards sahil 12/02/2023 Screening for aneuploidy [facility] 12/02/2023 Nutrition counseling ; special diet; dietary precautions (mercury, listeriosis) [facility] 12/02/2023 Childbirth classes/h ospital facilities [facility] 12/02/2023 HIV and other routine tests [facility] 12/02/2023 Risk factors identif ied by history [facility] 12/02/2023 [facility] gain [facility] 12/02/2023 Exercise [facility] 12/02/2023 Teratogens [facility] 12/02/2023 Use of any medicatio ns (including supplements, vitamins, herbs, or OTC drugs) [facility] 12/02/2023 [facility] 12/02/2023 Sexual activity [facility] 12/02/2023 Tobacco/smoking cess ation counseling (ask, advise, assess, assist, and arrange) [facility] 12/02/2023 Illicit/recreational drugs sahil 12/02/2023 Dental care Does have a dentist [facility] 12/02/2023 [facility] 12/02/2023 Seat belt use [facility] 12/02/2023 Indications for ultrasonography [email or web address] 12/02/2023 Avoidance of saunas or hot tubs [email or web address] 12/02/2023 Toxoplasmosis precau tions (cats/raw meat) No cats in home [email or web address] Second Trimester Discussed Date Discussion Item Discussion Note Discuss ed By Third Trimester Discussed Date Discussion Item Discussion Note Discuss ed By Delivery Information Delivery Date Delivery Type Labor Anesthesia Weeks Gestation Incision Type Labor Labor Length Hrs Delivered By Post Complications Tubal Sterilization Discharge Date Comments 4 Sponta neous [facility]-Ep idural 39.1 false Mannie Zimmer MD None false 07/01/2024 Discharge Information Feeding Method Contraceptive Method Maternal HG B and HCT Levels Breast 12.3/37.3
== END 2025-07-26 13:20 | disposition home or self-care (01) ==
LOC: HO.HMGAL 13:19
PROVIDERS: Visit Provider Registered Nurse Emergency
DX: J30.89 Other allergic rhinitis (principal)
CPT/HCPCS: 95117; 95165